=== PATIENT | female | born 1995 | race American Indian/Alaskan Native ===

== ENCOUNTER 2019-12-05 19:58 | Emergency (ER) | payer OTHER ==
[2019-12-05 20:17] VITALS: BP 114/74
[2019-12-05] MEDS ORDERED: IBUPROFEN 800 MG TAB PO ONE (22:28)
[2019-12-05] MEDS ORDERED: IBUPROFEN 800 MG TAB ONE (22:29)
[2019-12-06] MEDS ORDERED: TETANUS,DIPH,PERTUSS(ACELL) VACCINE 0.5 ML SYRINGE IM ONE (00:41)
--- NOTE | 2019-12-06 01:30 | Emergency Department Report ---
Burn HPI - History Stated Complaint: WORK INJURY/L ARM BURN Chief Complaint: Burn/Smoke Inhalation Time Seen by Provider: 12/06/19 00:37 Duration of Burn: Today Burn Location: Other (left forearm) Burn Etiology: Accidental Pain: Mild Tetanus Status: Not up to Date Symptoms:: Yes Blistering, Yes Able to Tolerate Fluids, No Malaise, No Myalgias, No Fever, No Vomiting Other History: This is a 24-year-old female nontoxic, well nourished in appearance, no acute signs of distress presents to the ED with c/o of left forearm superficial burn that occurred last night at work. Patient states this was accidental with hot water. Patient denies otherwise any other injuries. Denies any fever, chills, nausea, vomiting, headache, stiff neck numbness or tingling. Patient is able to tolerate fluids. Denies any allergies or significant past medical history. - Home Meds and Allergies Home Medications: Previous Rx's Medication Instructions Recorded Last Taken Type Acetaminophen/Codeine [Tylenol 1 tab PO Q6H PRN #12 tab 12/06/19 Unknown Rx /Codeine # 3 tab] Silver Sulfadiazine [Silvadene] 1,000 gm TP DAILY #1 cream..g. 12/06/19 Unknown Rx Sulfamethoxazole/Trimethoprim 1 each PO BID #14 tablet 12/06/19 Unknown Rx [Bactrim DS TAB] Allergies/Adverse Reactions: Allergies Allergy/AdvReac Type Severity Reaction Status Date / Time No Known Allergies Allergy Verified 12/05/19 22:53 ED Review of Systems ROS: Stated complaint: WORK INJURY/L ARM BURN Other details as noted in HPI Constitutional: denies: chills, fever Eyes: denies: eye pain, eye discharge, vision change ENT: denies: ear pain, throat pain Respiratory: denies: cough, shortness of breath, wheezing Cardiovascular: denies: chest pain, palpitations Endocrine: no symptoms reported Gastrointestinal: denies: abdominal pain, nausea, diarrhea Genitourinary: denies: urgency, dysuria, discharge Musculoskeletal: denies: back pain, joint swelling, arthralgia Skin: denies: rash, lesions Neurological: denies: headache, weakness, paresthesias Psychiatric: denies: anxiety, depression Hematological/Lymphatic: denies: easy bleeding, easy bruising ED Past Medical Hx - Past Medical History Previous Medical History?: No - Surgical History Past Surgical History?: Yes Additional Surgical History: Right eye - Social History Smoking Status: Never Smoker Substance Use Type: None - Medications Home Medications: Home Medications Medication Instructions Recorded Confirmed Last Taken Type Acetaminophen/Codeine [Tylenol 1 tab PO Q6H PRN #12 tab 12/06/19 Unknown Rx /Codeine # 3 tab] Silver Sulfadiazine [Silvadene] 1,000 gm TP DAILY #1 cream..g. 12/06/19 Unknown Rx Sulfamethoxazole/Trimethoprim 1 each PO BID #14 tablet 12/06/19 Unknown Rx [Bactrim DS TAB] Exam - Exam General: Vital signs noted. No distress. Alert and acting appropriately. HEENT: Yes Moist Mucous Membranes, No Conjuctival Injection, No Corneal Edema Full Body Front + Back: 1 - Simple burn present Skin: Yes Erythroderma, Yes Blistering, Yes Tenderness, No Edema Exam: Yes Normal Heart Sounds, No Respiratory Distress, No Sensory Deficits, No Musculoskeletal Pain ED Course Vital Signs 12/05/19 20:15 Temperature 98.1 F Pulse Rate 68 Respiratory 18 Rate Blood Pressure 114/74 O2 Sat by Pulse 100 Oximetry - Reevaluation(s) Reevaluation #1: 12/06/19 01:34 Patient is speaking in full sentences with no signs of distress noted. ED Medical Decision Making - Medical Decision Making 24-year-old female that presents with superficial burn. Patient stable and was examined by me. Patient received Silvadene in the ER. Still dressing has been applied. Patient also received tetanus in the ER. Patient will be discharged with Silvadene and Bactrim. There is no joint involvement. Patient was instructed to Follow-up with a primary care doctor and [facility] in 3-5 days or if symptoms worsen and continue return to emergency room as soon as possible. At time of discharge, the patient does not seem toxic or ill in appearance. No acute signs of distress noted. Patient agrees to discharge treatment plan of care. No further questions noted by the patient. Critical care attestation.: If time is entered above; I have spent that time in minutes in the direct care of this critically ill patient, excluding procedure time. ED Disposition Clinical Impression: Burn of forearm, left Qualifiers: Encounter type: initial encounter Burn degree: unspecified degree Qualified Code(s): T22.012A - Burn of unspecified degree of left forearm, initial encounter Disposition: TO HOME OR SELFCARE Is pt being admited?: No Does the pt Need Aspirin: No Condition: Stable Instructions: Superficial Burn (ED) Additional Instructions: Follow-up with a primary care doctor and [facility] in 2 days or if symptoms worsen and continue return to emergency room as soon as possible. Do not operate any machinery while taking Tylenol with codeine as this may cause drowsiness. Prescriptions: Sulfamethoxazole/Trimethoprim [Bactrim DS TAB] 1 each PO BID #14 tablet Silver Sulfadiazine [Silvadene] 1,000 gm TP DAILY #1 cream..g. Acetaminophen/Codeine [Tylenol /Codeine # 3 tab] 1 tab PO Q6H PRN #12 tab PRN Reason: Pain , Severe (7-10) Referrals: MADAY SUÁREZ MD [Primary Care Provider] - 3-5 Days DOMONIQUE HERNANDEZ MD [Staff Physician] - 3-5 Days [facility] [Outside] - 3-5 Days Forms: Work/School Release Form(ED)
== END 2019-12-06 01:40 | disposition home or self-care (01) ==
LOC: ED 19:58
DX: T22.012A Burn of unspecified degree of left forearm, initial encounter (principal); Z79.899 Other long term (current) drug therapy; X11.8XXA Contact with other hot tap-water, initial encounter; Y93.89 Activity, other specified; Y92.69 Other specified industrial and construction area as the place of occurrence of the external cause; Y99.0 Civilian activity done for income or pay
CPT/HCPCS: 90471; 90715